=== PATIENT | female | born 1995 | race Caucasian/White ===

== ENCOUNTER → 2017-06-05 14:13 | Outpatient (CLI) | payer SELFPAY ==
--- NOTE | 2017-06-05 14:16 | CT_ITS ---
STUDY: INTERNAL AUDITORY CANALS BILATERALLY WITHOUT CONTRAST REASON FOR EXAM: Female, 21 years old. Eustachian tube dysfunction. RADIATION DOSAGE (If Supplied By Facility): CTDIvol = ( 82.28 ) mGy, DLP = ( 822.21 ) mGycm. Individualized dose optimization techniques were used for this CT.? FLUOROSCOPY TIME (if supplied): ( ) minutes/seconds TECHNIQUE: Axial images through the temporal bones without administration of intravenous contrast with coronal reconstructions. COMPARISON: None. FINDINGS: No fracture identified. No masses or cysts. There is soft tissue in the right middle ear recess adjacent to the ossicles. Right-sided mastoid Left-sided mastoid air cells are clear. Mastoid air cells are partially opacified. The right middle ear, ossicles, cochlea, vestibule, vestibular and cochlear aqueduct, facial nerve canal, semicircular canals, internal auditory canal, external auditory canal, carotid canal, jugular foramen and temporomandibular joint are normal. Scutum is well-defined. The left middle ear, ossicles, cochlea, vestibule, vestibular and cochlear aqueduct, facial nerve canal, semicircular canals, internal auditory canal, external auditory canal, carotid canal and jugular foramen and temporomandibular joint are normal. Scutum is well-defined. CT/Orb Sella Post Fossa Ear w/o IMPRESSION: 1. Right-sided mastoid disease. 2. Nonspecific soft tissue within the right middle ear recess suggests possible sequela of otitis media or possible cholesteatoma. Electronically Signed: Tessa Smith MD at 7:59 EDT , Service support ,
== END ==
PROVIDERS: Family Provider Family Medicine; PCP Family Medicine
DX: H69.83 Other specified disorders of Eustachian tube, bilateral (principal); H72.02 Central perforation of tympanic membrane, left ear
CPT/HCPCS: 70480

== ENCOUNTER → 2019-12-30 09:21 | Outpatient (CLI) | payer SELFPAY ==
[2019-12-30 08:26] VITALS: BMI 45.1
[2019-12-30 12:53] LABS: AST(SGOT) 34 U/L (15-37); Alanine Aminotransfer ALT/SGPT 93 U/L (13-56); Albumin, Serum 3.8 g/dL (3.2-5.0); Alkaline Phosphatase 89 U/L (45-117); Anion Gap 8 (5-15); BUN 11 mg/dL (7-18); BUN/Creat Ratio 15.1 RATIO (10-20); Calcium,Total 8.7 mg/dL (8.5-10.1); Chloride 103 mmol/L (98-107); Creatinine, Serum 0.73 mg/dL (0.55-1.02); EST Glomerular Filtration Rate 106 mL/min (>60); Est Glom Filt Rate - Afr Amer 129 mL/min (>60); Globulin 3.9 g/dL (2.2-4.2); Glucose 106 mg/dL (74-106); Potassium 3.9 mmol/L (3.5-5.1); Protein, Total 7.7 g/dL (6.4-8.2); Sodium Level 139 mmol/L (136-145); Thyroid Stim Hormone (TSH) 1.16 uIU/mL (0.358-3.74)
== END ==
PROVIDERS: PCP Family Medicine; Visit Provider Internal Medicine Endocrinology, Diabetes & Metabolism
DX: N91.5 Oligomenorrhea, unspecified (principal)
CPT/HCPCS: 36415; 80053; 84443

== ENCOUNTER → 2020-10-09 16:01 | Outpatient (CLI) | payer SELFPAY ==
[2019-12-30 08:26] VITALS: BMI 45.1
--- NOTE | 2020-10-09 16:16 | CT_ITS ---
STUDY: CT TEMPORAL BONES WITHOUT CONTRAST - ATTN: I.A.C. S REASON FOR EXAM: Female, 24 years old. CHOLESTEATOMA OF BOTH EARS RADIATION DOSAGE (If Supplied By Facility): CTDIvol = ( 67.58 ) mGy, DLP = ( 675.39 ) mGycm TECHNIQUE: The patient was scanned in a multi detector CT scanner. Transaxial imaging was performed without the administration of intravenous contrast material. Sagittal and coronal images were reconstructed. Individualized dose optimization techniques were used for this CT. COMPARISON: None. FINDINGS: RIGHT TEMPORAL BONE Normal right internal auditory canal. Normal visualized ossicles and tympanic cavity. Normal right cochlea and semicircular canals. Normal vestibular aqueduct. Normal right petrous carotid artery. Normal right jugular fossa. Normal right mastoid air cells. Normal right petrous apex. LEFT TEMPORAL BONE Normal left internal auditory canal. Normal visualized ossicles and tympanic cavity. Normal left cochlea and semicircular canals. Normal vestibular aqueduct. Normal left petrous carotid artery. Normal right jugular fossa. Normal left mastoid air cells. Normal left petrous apex. CT/Orb Sella Post Fossa Ear w/o IMPRESSION: Normal unenhanced CT examination of the bilateral temporal bones (I.A.C.''s). Electronically Signed: Miguel Chavez MD at 17:12 EDT , Service support ,
== END ==
PROVIDERS: PCP Family Medicine
DX: H71.93 Unspecified cholesteatoma, bilateral (principal)
CPT/HCPCS: 70480

== ENCOUNTER → 2021-10-26 | Outpatient (CLI) | payer OTHER, SELFPAY ==
[2021-10-26 11:07] LABS: Hemoglobin A1c 5.3 % (3.8-5.6)
[2021-10-26 11:30] LABS: ALB/GLOB Ratio 1.1 RATIO (0.9-2.4); AST(SGOT) 10 U/L (15-37); Alanine Aminotransfer ALT/SGPT 21 U/L (13-56); Alkaline Phosphatase 69 U/L (45-117); Anion Gap 8 (5-15); BUN 16 mg/dL (7-18); Calcium,Total 9.2 mg/dL (8.5-10.1); Chloride 107 mmol/L (98-107); Creatinine, Serum 0.64 mg/dL (0.55-1.02); EST Glomerular Filtration Rate 121 mL/min (>60); Est Glom Filt Rate - Afr Amer 147 mL/min (>60); Ferritin 42 ng/mL (8-252); Globulin 3.6 g/dL (2.2-4.2); Glucose 69 mg/dL (74-106); Iron 77 ug/dL (50-170); Potassium 3.7 mmol/L (3.5-5.1); Protein, Total 7.6 g/dL (6.4-8.2); Sodium Level 140 mmol/L (136-145); Thyroid Stim Hormone (TSH) 1.44 uIU/mL (0.358-3.74)
== END | disposition home or self-care (01) ==
LOC: LAB 10:16
PROVIDERS: PCP Family Medicine; Referring Provider Nurse Practitioner Family; Visit Provider Nurse Practitioner Family
DX: E04.9 Nontoxic goiter, unspecified (principal); L65.9 Nonscarring hair loss, unspecified
CPT/HCPCS: 36415; 80053; 82728; 83036; 83540; 84443

== ENCOUNTER → 2024-03-22 | Outpatient (CLI) | payer SELFPAY ==
--- NOTE | 2024-03-22 17:44 | CT_ITS ---
INDICATION: CHOLESTEATOMA, KNOW TO HAVE HOLES IN EARDRUM EXAMINATION: CT IAC TEMPORAL BONES - CT IACs W/O Contrast Injection TECHNIQUE: Routine noncontrast CT protocol was performed of the internal auditory canals and temporal bones. 2-D reformats were performed by the technologist. The protocol utilizes one or more of the following dose reduction techniques: automated exposure control, adjustment of mA and/or kV according to patient size, and/or use of iterative reconstruction technique. IV Contrast dosage and agent: None. RADIATION DOSAGE (If Supplied By Facility): CTDIvol = ( 67.58 ) mGy, DLP = ( 759.86 ) mGycm COMPARISON: 10/09/2020. FINDINGS: RIGHT SIDE: No fracture. SUPERFICIAL SOFT TISSUES: Unremarkable. MASTOID AIR CELLS: Well aerated, unremarkable. EXTERNAL AUDITORY CANALS: Clear. MIDDLE EAR CAVITIES: Well aerated. Ossicles and scutum intact. INTERNAL AUDITORY CANALS: Unremarkable bilateral internal auditory canals. No osseous erosion or widening of the canal. INNER EAR: Unremarkable cochlea, vestibule and semicircular canals. LEFT SIDE: No fracture. SUPERFICIAL SOFT TISSUES: Unremarkable. MASTOID AIR CELLS: Well aerated, unremarkable. EXTERNAL AUDITORY CANALS: Clear. MIDDLE EAR CAVITIES: Well aerated. Ossicles and scutum intact. INTERNAL AUDITORY CANALS: Unremarkable bilateral internal auditory canals. No osseous erosion or widening of the canal. INNER EAR: Unremarkable cochlea, vestibule and semicircular canals. VISUALIZED BRAIN AND POSTERIOR FOSSA: Cerebello-pontine angles are unremarkable. CT/Orb Sella Post Fossa Ear w/o IMPRESSION: Negative CT of the internal auditory canals and temporal bones and unchanged when compared to 10/09/2020. Electronically Signed: Miguel Chavez MD at 12:44 EST ,
== END | disposition home or self-care (01) ==
PROVIDERS: PCP Family Medicine
DX: H71.90 Unspecified cholesteatoma, unspecified ear (principal)
CPT/HCPCS: 70480